=== PATIENT | female | born 1955 | race Caucasian/White ===

== ENCOUNTER 2016-06-30 12:47 | Emergency (ER) | payer OTHER, BC ==
[~2016-06-30] VITALS: Ht 165.1 cm; Wt 104.5 kg
[~2016-06-30 12:47] MED LIST: ATOR-22 PO; ESCI10TA17 PO; FEXO5TAB2 PO; GLC/500 PO; LEVO100T7 PO; LISI-787 PO; OMEP10CA2 PO
[2016-06-30 12:55] VITALS: TEMP 36.9; Ht 165.1 cm; Wt 104.5 kg
[2016-06-30] MEDS ORDERED: LISI40TA PO (13:09)
[2016-06-30] MEDS ORDERED: METO25TA56 PO (13:09)
[2016-06-30] MEDS ORDERED: PRLSR20 PO (13:09)
[2016-06-30] MEDS ORDERED: LEVO88TA3 PO (13:09)
[2016-06-30] MEDS ORDERED: WARF10TA4 PO (13:09)
[2016-06-30] MEDS ORDERED: SODIUM CHLORIDE 0.9% 1000ML 1,000 ML IV STA ×2 (13:29)
[2016-06-30] MEDS ORDERED: OXYCODONE HCL IR 5 MG TAB (IMMEDIATE RELEASE) PO STA (13:29)
[2016-06-30 13:35] VITALS: O2SAT 93
[2016-06-30] MEDS: DIPHTHERIA/TETANUS/PERTUSSIS 0.5 ML SYR/VIAL IM. ONE ×2 (13:44→13:46)
[2016-06-30 13:54] LABS: BASO % 0.4 %; BASO ABS # 0.04 K/uL (0-0.2); COMPLETE YES; EOS % 1.6 %; HEMATOCRIT 40.5 % (37-47); IG% 0.8 %; LYMPH % 28.6 %; LYMPH ABS # 3.09 K/uL (1.2-3.4); MEAN CELL VOLUME 81.3 fL (80-100); MEAN CORPUSCULAR HEMOGLOBIN 26.9 pg (25-34); MEAN CORPUSCULAR HGB CONC 33.1 g/dl (32-36); MEAN PLATELET VOLUME 10.5 fL (7.4-10.4); MONO % 6.8 %; NEUT % 61.8 %; PLATELET COUNT 244 K/uL (130-400); RED BLOOD COUNT 4.98 M/uL (4.2-5.4); WHITE BLOOD COUNT 10.82 K/uL (4.8-10.8)
[2016-06-30 14:04] LABS: INR 1.9 (0.9-1.1)
[2016-06-30 14:10] LABS: ALKALINE PHOSPHATASE 83 U/L (45-117); ALT/SGPT 38 U/L (12-78); AST/SGOT 22 U/L (15-37); BLOOD UREA NITROGEN 16 mg/dl (7-18); BUN/CREATININE RATIO 16.1 (10-20); CALCIUM 8.7 mg/dl (8.5-10.1); CARBON DIOXIDE 25 mmol/L (21-32); CHLORIDE 108 mmol/L (98-107); CREATININE 0.97 mg/dl (0.60-1.20); GLUCOSE 122 mg/dl (70-99); POTASSIUM 4.1 mmol/L (3.5-5.1); SODIUM 144 mmol/L (136-145)
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
[2016-06-30] MEDS ORDERED: MoRPHine SULFATE 10 MG/ML CARP/VIAL IV STA (14:30)
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
[2016-06-30] MEDS ORDERED: OXYC1TAB3 PO (16:27)
[2016-06-30 16:53] VITALS: BP 159/76; PULSE 70; O2SAT 94
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
== END 2016-06-30 16:57 | disposition home or self-care (01) ==
LOC: EDBD 12:47 → C.EDC 12:56
DX: S22.080A Wedge compression fracture of T11-T12 vertebra, initial encounter for closed fracture (principal); S32.010A Wedge compression fracture of first lumbar vertebra, initial encounter for closed fracture; I48.91 Unspecified atrial fibrillation; Z79.01 Long term (current) use of anticoagulants; E11.9 Type 2 diabetes mellitus without complications; Z79.84 Long term (current) use of oral hypoglycemic drugs; M41.9 Scoliosis, unspecified; V48.0XXA Car driver injured in noncollision transport accident in nontraffic accident, initial encounter; Y93.89 Activity, other specified; Y92.89 Other specified places as the place of occurrence of the external cause; Y99.8 Other external cause status

== ENCOUNTER → 2016-08-13 | Outpatient (CLI) | payer BC ==
[~2016-08-13] MED LIST changes: -ESCI10TA17 PO; -LEVO100T7 PO; +LEVO88TA3 PO; -LISI-787 PO; +LISI40TA PO; +METO25TA56 PO; -OMEP10CA2 PO; +OXYC1TAB3 PO; +PRLSR20 PO; +WARF10TA4 PO
--- NOTE | 2016-08-13 15:55 | MAMMOGRAPHY REPORT ---
BILATERAL DIGITAL SCREENING MAMMOGRAM WITH CAD: 08/13/2016 CLINICAL HISTORY: Routine screening. Patient has no complaints. TECHNIQUE: Current study was also evaluated with a Computer Aided Detection (CAD) system. Bilatera l CC and MLO views were obtained. COMPARISON: Comparison is made to exams dated: 08/09/2015 mammogram, 01/10/2013 mammogram, 08/08/2014 mammogram, 01/09/2012 mammogram, 12/19/2010 mammogram, and 12/18/2009 mammogram - [facility]. BREAST COMPOSITION: There are scattered areas of fibroglandular density in both breasts. FINDINGS: No suspicious masses, calcifications, or areas of architectural distortion are noted in e ither breast. There has been no significant interval change compared to prior exams. IMPRESSION: ACR BI-RADS CATEGORY 1: NEGATIVE There is no mammographic evidence of malignancy. A 1 year screening mammogram is recommended. The p atient will receive written notification of the results. Approximately 10% of breast cancers are not detected with mammography. A negative mammographic repor t should not delay biopsy if a clinically suggestive mass is present. Jocelni Haro M.D. ah/:08/13/2016 15:16:01 Home Health Administrator: Sherie ROSARIO(Naida)(M), [facility] letter sent: Normal 1/2 BI-RADS Code: ACR BI-RADS Category 1: Negative
== END | disposition home or self-care (01) ==
LOC: C.MAMM 14:49
PROVIDERS: ATTEND Family Medicine
DX: Z12.31 Encounter for screening mammogram for malignant neoplasm of breast (principal)

== ENCOUNTER → 2017-09-10 | Outpatient (CLI) | payer OTHER ==
[~2017-09-10] MED LIST changes: -OXYC1TAB3 PO
--- NOTE | 2017-09-11 07:44 | MAMMOGRAPHY REPORT ---
BILATERAL DIGITAL SCREENING MAMMOGRAM TOMOSYNTHESIS WITH CAD: 09/10/2017 CLINICAL HISTORY: Routine screening. Patient has no complaints. TECHNIQUE: Breast tomosynthesis in addition to standard 2D mammography was performed. Current study was also evaluated with a Computer Aided Detection (CAD) system. COMPARISON: Comparison is made to exams dated: 08/13/2016 mammogram, 08/09/2015 mammogram, 08/08/2014 m ammogram, 01/10/2013 mammogram, 01/09/2012 mammogram, and 12/19/2010 mammogram - [facility]. BREAST COMPOSITION: There are scattered areas of fibroglandular density in both breasts. FINDINGS: No suspicious masses, calcifications, or areas of architectural distortion are noted in ei ther breast. There has been no significant interval change compared to prior exams. IMPRESSION: ACR BI-RADS CATEGORY 1: NEGATIVE There is no mammographic evidence of malignancy. A 1 year screening mammogram is recommended. The pa tient will receive written notification of the results. Approximately 10% of breast cancers are not detected with mammography. A negative mammographic report should not delay biopsy if a clinically suggestive mass is present. Jocelin Haro M.D. ah/:09/10/2017 14:21:39 General Duty Nurse: Sofia ROSARIO(Naida)(M), [facility] letter sent: Normal 1/2 BI-RADS Code: ACR BI-RADS Category 1: Negative
== END | disposition home or self-care (01) ==
LOC: C.MAMM 13:32
PROVIDERS: ATTEND Family Medicine
DX: Z12.31 Encounter for screening mammogram for malignant neoplasm of breast (principal)

== ENCOUNTER 2021-06-23 22:26 | Observation (INO) ==
[2021-06-23] MEDS ORDERED: SODIUM CHLORIDE 0.9% 1000ML 1,000 ML IV ONE (22:46)
[2021-06-24 00:05] LABS: BUN Creatinine Ratio 19.4 (10-20); Bilirubin,Total 0.3 mg/dl (0.2-1.0); Calcium 8.9 mg/dl (8.5-10.1); Creatinine Clr Calc Pharmacy 65.7 ml/min; Est GFR (African American) 61.5 ml/min; Est GFR (Non-African American) 53.1 ml/min; Total Protein 6.4 gm/dl (6.0-8.3)
--- NOTE | 2021-06-24 00:16 | Emergency Department Note ---
History of Present Illness General Chief complaint: Hyperglycemia Stated complaint: BLOOD SUGAR UP TO 451,DIZZINESS,FAST HR Time Seen by Provider: 06/23/21 22:41 History of Present Illness Provider complaint: Hyperglycemia Onset (ago): day(s) 3 Associated symptoms: no chest pain, no cough, no fever/chills, no headaches, no nausea/vomiting, no rash, no shortness of breath, no syncope or no weakness 66-year-old type II diabetic female presents emergency department for hyperglycemia. Patient reports her blood sugars have been high for the last 3 days. She states her high blood blood sugar was greater than 450. Patient states her symptoms started after she was placed on prednisone by her PCP for gout. She states she has a gout flareup in her right big toe. She states since starting the prednisone she has noticed her blood sugars are higher and she feels restless. Patient is on metformin 500 mg no insulin no other oral hypoglycemic medications. Patient denies any chest pain difficulty breathing hematuria dysuria nausea vomiting or diarrhea. No fevers. Home Medications Medication Instructions Recorded Confirmed Type atorvastatin 20 mg tablet 20 mg PO DAILY 09/15/18 06/23/21 History escitalopram oxalate 10 mg tablet 10 mg PO DAILY 09/15/18 06/23/21 History (Lexapro) hydrochlorothiazide 12.5 mg tablet 12.5 mg PO DAILY 09/15/18 06/23/21 History levothyroxine 100 mcg tablet 100 mcg PO DAILYBB 09/15/18 06/23/21 History (Levoxyl) lisinopril 40 mg tablet 40 mg PO DAILY 09/15/18 06/23/21 History metformin 500 mg tablet 500 mg PO BIDM 09/15/18 06/23/21 History omeprazole 10 mg capsule,delayed 10 mg PO DAILY 09/15/18 06/23/21 History release apixaban 5 mg tablet (Eliquis) 5 mg PO BID 06/23/21 06/23/21 History metoprolol succinate 25 mg 25 mg PO HS 06/23/21 06/23/21 History tablet,extended release 24 hr etodolac 200 mg capsule 200 mg PO Q12H PRN #14 cap 06/24/21 Rx Allergies Allergy/AdvReac Type Severity Reaction Status Date / Time Sulfa (Sulfonamide Allergy Intermediate RASH, Verified 06/23/21 23:14 Antibiotics) SWELLING Past Med/Surg History Medical History Compression fracture of lumbosacral spine Diabetes Gout No pertinent family history Surgical History No pertinent past surgical history Family History Other No pertinent family history Social History Smoking Status: Never smoker Preferred Language: French Feels Safe at Home: Yes Review of Systems A total of 6 systems reviewed and were otherwise negative Physical Exam Vital Signs Vital Signs - 24 hr 06/23/21 22:29 06/23/21 23:30 06/23/21 23:31 Temperature 36.3 C L Temperature Source Temporal Artery Scan Pulse Rate 80 61 Pulse Rate [Apical] 62 Pulse Rhythm Regular Pulse Rhythm [Apical] Regular Pulse Strength [Apical] Normal Respiratory Rate 18 20 20 Respiratory Effort / Characteristics Non-Labored Spontaneous Respiratory Depth Normal Normal Respiratory Pattern Regular Blood Pressure 192/86 H Blood Pressure [Right Arm] 169/76 H Blood Pressure Mean 121 Blood Pressure Mean [Right Arm] 107 Blood Pressure Position [Right Arm] Semi-fowlers Pulse Oximetry 94 96 96 Oxygen Delivery Method Room Air Room Air Room Air Sepsis Recent Fever Within 48 Hours No Sepsis New/Unexplained Change in Mental Status N/A Sepsis Action Taken by Nursing No Action Required 06/24/21 01:00 Temperature Temperature Source Pulse Rate Pulse Rate [Apical] 63 Pulse Rhythm Pulse Rhythm [Apical] Regular Pulse Strength [Apical] Normal Respiratory Rate 18 Respiratory Effort / Characteristics Non-Labored Spontaneous Respiratory Depth Normal Respiratory Pattern Regular Blood Pressure Blood Pressure [Right Arm] 169/76 H Blood Pressure Mean Blood Pressure Mean [Right Arm] 107 Blood Pressure Position [Right Arm] Semi-fowlers Pulse Oximetry 97 Oxygen Delivery Method Room Air Sepsis Recent Fever Within 48 Hours Sepsis New/Unexplained Change in Mental Status Sepsis Action Taken by Nursing Physical Exam GENERAL: She is oriented to person, place, and time. She appears well-developed and well-nourished. She does not appear distressed. HENT: Exam performed. -Head: Normocephalic and atraumatic. -Right Ear: External ear normal. No mastoid tenderness. -Left Ear: External ear normal. No mastoid tenderness. -Mouth/Throat: The oropharynx is clear and moist. No trismus in the jaw. No dental abscesses or uvula swelling. No oropharyngeal exudate or tonsillar abscesses. EYES: Conjunctivae and EOM are normal. Pupils are equal, round, and reactive to light. Right eye exhibits no discharge. Left eye exhibits no discharge. No scleral icterus. NECK: Normal range of motion. Neck supple. No JVD present. No spinous process tenderness present. No carotid bruit present. No rigidity. No tracheal deviation and normal range of motion present. No Brudzinski's sign and no Kernig's sign noted. CV: Normal rate, regular rhythm, normal heart sounds and intact distal pulses. There is no peripheral edema. Palpable radial pulses bue. PULM/CHEST: Effort normal and breath sounds normal. No respiratory distress. No stridor. She has no wheezes. She has no rales. -Chest Wall: She exhibits no tenderness. ABD: The abdomen is soft and obese Bowel sounds are normal. She has no distension. No mass is present. There is no tenderness. There is no rebound, no guarding, no Ramirez's sign and no tenderness at McBurney's point. Rovsig negative MUSC/SKEL: Right great toe tophi. LYMPH: No cervical adenopathy. NEURO: She is alert and oriented to person, place, and time. She has normal strength. No cranial nerve deficit or sensory deficit. Coordination and gait normal. GCS eye subscore is 4. GCS verbal subscore is 5. GCS motor subscore is 6. Cerebellar tests wnl. SKIN: Skin is warm and dry. She is not diaphoretic. PSYCH: She has a normal mood and affect. Behavior is normal. Judgment and thought content normal. Course Course 224: The patient was evaluated in room C4. A complete history and physical exam was performed Cardiac monitoring: An order was placed for continuous cardiac monitoring. The monitor shows a rate of 60 with sinus rhythm 0055: Vital signs stable. Labs show hyperglycemia with elevated anion gap. No significant provement in blood sugar with 1 L IV fluid. Patient will be started on insulin drip as well as IV fluids with KCl. [facility] Dr. Almodovar who accepts the patient. Administered Medications Insulin Human Regular 250 (units/ Sodium Chloride) 250 mls @ 6 mls/hr IV .Q24H DEVEN; Protocol Stop: 07/24/21 00:44 Last Admin: 06/24/21 01:02 Dose: 6 units/hr, 6 mls/hr Documented by: [id number] Cosigned by: [id number] Potassium Chloride/Sodium Chloride (Normal Saline W/20 Meq Kcl) 20 meq in 1,000 mls @ 125 mls/hr IV .Q8H DEVEN; Protocol Stop: 07/24/21 00:44 Last Admin: 06/24/21 01:00 Dose: 125 mls/hr Documented by: [id number] Discontinued Medications Sodium Chloride (Nss 1000ml) 1,000 mls @ 999 mls/hr IV .Q1H1M ONE Stop: 06/23/21 23:46 Last Infusion: 06/24/21 01:09 Dose: 0 mls/hr Documented by: [id number] Admin: 06/23/21 23:26 Dose: 999 mls/hr Documented by: [id number] Critical Care Time Critical Care Time: Yes Total Critical Care Time: 37 I have personally spent greater than 37 minutes of critical care time in the direct management of this patient. This includes bedside care, interpretation of diagnostic studies, and testing, discussion with consultants, patient, and family members, and other required patient management activities. This 37 minutes is in excess of all separately billable procedures. Medical Decision Making Laboratory Data Result diagrams: 06/23/21 23:16 Lab Results 06/23/21 06/23/21 06/24/21 Range/Units 22:32 23:16 00:29 Sodium 133 L (136-145) mmol/L Potassium 4.0 (3.5-5.1) mmol/L Chloride 96 L (98-107) mmol/L Carbon Dioxide 23 (21-32) mmol/L Anion Gap 14 H (3-11) BUN 21 (6-23) mg/dl Creatinine 1.08 (0.6-1.2) mg/dl Est Cr Clr Drug Dosing 65.7 ml/min Est GFR ( Amer) 61.5 ml/min Est GFR (Non-Af Amer) 53.1 ml/min BUN/Creatinine Ratio 19.4 (10-20) Glucose 378 H* (70-99(Fasting)) mg/dl POC Glucose 364 H* 371 H* (70-99) mg/dl Calcium 8.9 (8.5-10.1) mg/dl Total Bilirubin 0.3 (0.2-1.0) mg/dl Direct Bilirubin 0.0 (0-0.2) mg/dl AST 17 (13-39) U/L ALT 30 (7-52) U/L Alkaline Phosphatase 85 (34-104) U/L Total Protein 6.4 (6.0-8.3) gm/dl Albumin 4.0 (3.4-5.0) gm/dl Lipase 46 (11-82) U/L SARS-CoV-2, RNA, NAAT (NEGATIVE) 06/24/21 Range/Units 00:42 Sodium (136-145) mmol/L Potassium (3.5-5.1) mmol/L Chloride (98-107) mmol/L Carbon Dioxide (21-32) mmol/L Anion Gap (3-11) BUN (6-23) mg/dl Creatinine (0.6-1.2) mg/dl Est Cr Clr Drug Dosing ml/min Est GFR ( Amer) ml/min Est GFR (Non-Af Amer) ml/min BUN/Creatinine Ratio (10-20) Glucose (70-99(Fasting)) mg/dl POC Glucose (70-99) mg/dl Calcium (8.5-10.1) mg/dl Total Bilirubin (0.2-1.0) mg/dl Direct Bilirubin (0-0.2) mg/dl AST (13-39) U/L ALT (7-52) U/L Alkaline Phosphatase (34-104) U/L Total Protein (6.0-8.3) gm/dl Albumin (3.4-5.0) gm/dl Lipase (11-82) U/L SARS-CoV-2, RNA, NAAT NEGATIVE (NEGATIVE) [facility] Narrative 2241: The patient was evaluated in room C4. A complete history and physical exam was performed Cardiac monitoring: An order was placed for continuous cardiac monitoring. The monitor shows a rate of 60 with sinus rhythm 0055: Vital signs stable. Labs show hyperglycemia with elevated anion gap. No significant provement in blood sugar with 1 L IV fluid. Patient will be started on insulin drip as well as IV fluids with KCl. [facility] Dr. Almodovar who accepts the patient. Impression & Plan DKA (diabetic ketoacidosis) Discharge Plan Visit Data Chief Complaint: Hyperglycemia Stated Complaint: BLOOD SUGAR UP TO 451,DIZZINESS,FAST HR ED Provider: Toño Patel Discharge Problem: DKA (diabetic ketoacidosis) Patient Disposition: Admitted As Inpatient Discharge Instructions Parisa/Other Patient Handouts: High Blood Sugar (Hyperglycemia), Treating Gout Attacks, Eating to Prevent Gout, ED Gout Diet Forms Stand Alone Forms: [facility], Virtual Emergency Department, Impo rtant Visit Information Prescriptions Prescriptions: New etodolac 200 mg capsule 200 mg PO Q12H PRN (Reason: pain) Qty: 14 RF: 0 Discontinued prednisone 20 mg tablet 20 mg PO DIRECTED RF: 0 No Action metformin 500 mg Tablet 500 mg PO BIDM RF: 0 atorvastatin 20 mg Tablet 20 mg PO DAILY RF: 0 levothyroxine [Levoxyl] 100 mcg Tablet 100 mcg PO DAILYBB RF: 0 omeprazole 10 mg Capsule,Delayed Release(Dr/Ec) 10 mg PO DAILY RF: 0 lisinopril 40 mg Tablet 40 mg PO DAILY RF: 0 escitalopram oxalate [Lexapro] 10 mg Tablet 10 mg PO DAILY RF: 0 hydrochlorothiazide 12.5 mg Tablet 12.5 mg PO DAILY RF: 0 metoprolol succinate 25 mg tablet extended release 24 hr 25 mg PO HS RF: 0 Eliquis 5 mg tablet 5 mg PO BID RF: 0 Referrals Referrals: Azalea Patel DO [Primary Care Provider] - (Follow-up in 1-7 days.) Discharge Problem: DKA (diabetic ketoacidosis) Qualifiers: Diabetes mellitus type: drug or chemical induced Diabetes mellitus complication detail: without coma Qualified Code(s): E09.10 - Drug or chemical induced di abetes mellitus with ketoacidosis without coma
[2021-06-24] MEDS ORDERED: CARBOHYDRATES FOR HYPOGLYCEMIA PO PRN (00:36)
[2021-06-24] MEDS ORDERED: GLUCAGON FOR INJ 1 MG VIAL SQ PRN (00:36)
[2021-06-24] MEDS ORDERED: GLUCOSE 40% GEL 15 GM TUBE PO PRN (00:36)
[2021-06-24] MEDS ORDERED: DEXTROSE 50% 50 ML SYRINGE IV PRN (00:36)
[2021-06-24] MEDS ORDERED: GLUCOSE 10 TABS/TUBE PO PRN (00:36)
[2021-06-24] MEDS ORDERED: STAT IV Infusion **Titration per Protocol STA (00:36)
[2021-06-24] MEDS ORDERED: INSULIN REGULAR 250 UNITS in SODIUM CHLORIDE 0.9% 247.5 ML IV SCH (00:45)
[2021-06-24] MEDS: NSS + 20MEQ KCL 20 MEQ/1,000 ML BAG IV SCH ×3 (01:00→18:21)
[2021-06-24] MEDS ORDERED: CONSULT PHARMACY STA (02:24)
[2021-06-24 04:00] LABS: BUN Creatinine Ratio 22.6 (10-20); Calcium 8.6 mg/dl (8.5-10.1); Creatinine Clr Calc Pharmacy 76.3 ml/min; Est GFR (African American) 73.7 ml/min; Est GFR (Non-African American) 63.6 ml/min
[2021-06-24] MEDS ORDERED: NITROGLYCERIN SL 0.4 MG/TAB TAB SL PRN (04:09)
[2021-06-24] MEDS ORDERED: ACETAMINOPHEN 325 MG TAB PO PRN (04:09)
[2021-06-24] MEDS ORDERED: ONDANSETRON INJ 2 MG/ML 2 ML VIAL IV PRN (04:09)
[2021-06-24] MEDS ORDERED: PHARMACY GLYCEMIC MGMT CONSULT PRN (05:17)
[2021-06-24] MEDS: LEVOTHYROXINE SODIUM 100 MCG TABLET PO SCH (06:59)
[2021-06-24 07:30] LABS: Estimated Average Glucose 209 mg/dl; Hemoglobin A1C 8.9 % (4.5-5.6)
[2021-06-24 07:32] LABS: BUN Creatinine Ratio 22.6 (10-20); Creatinine Clr Calc Pharmacy 76.3 ml/min; Est GFR (African American) 73.7 ml/min; Est GFR (Non-African American) 63.6 ml/min; Potassium 4.6 mmol/L (3.5-5.1)
[2021-06-24] MEDS ORDERED: INSULIN GLARGINE SOLOSTAR 100 UNITS/ML 3 ML PEN SC ONE ×2 (08:00→16:30)
--- NOTE | 2021-06-24 08:34 | History and Physical Report ---
DATE OF ADMISSION: 06/24/2021. CHIEF COMPLAINT: Hyperglycemia. HISTORY OF PRESENT ILLNESS: This is a 66-year-old female with past medical history significant for type 2 diabetes, metabolic syndrome, hyperlipidemia, hypothyroidism, diaphragmatic hernia, obstructive sleep apnea, atrial fibrillation, hypertension, irritable bowel syndrome, reflux esophagitis, morbid obesity, chronic kidney disease stage III, adjustment disorder with depression mood, presents with hyperglycemia. The patient says she is having flares of gout frequently recently. She had a flare in April and also in May and also recently all flares treated with prednisone. She was again restarted on prednisone. At this time, she was advised to take allopurinol once the flare is done, and she was given prednisone and she has couple more days of prednisone to go and then after that to start allopurinol. Her gout attack is in the right great toe. The pain is much improved, but today sugars were running high, more than 400, that is why she came to the ER. The patient's sugars were 378 in the ER, anion gap was 14, CO2 was 23. Potassium was 4. She was started on insulin drip. Currently, resting comfortably. Denies any headache, but has some dizziness, no blurred visions, no earache, no runny nose, no sore throat, no cough, no chest pain, no shortness of breath. Appetite is okay. No dysphagia, no nausea, no vomiting, no abdominal pain. Normal bowel and bladder movements. Ambulates okay. not sleeping well since she was started on prednisone. Currently resting comfortably and hemodynamically stable. ALLERGIES: SULFA ANTIBIOTICS. PAST MEDICAL HISTORY: As mentioned above. PAST SURGICAL HISTORY: Colonoscopy, EGD with biopsy, right knee arthroscopy, laparoscopic cholecystectomy, cataract surgery, tonsillectomy, adenoidectomy, total hysterectomy. MEDICATIONS: The patient is on Eliquis 5 mg p.o. b.i.d., atorvastatin 20 mg p.o. daily, Lexapro 10 mg p.o. daily, etodolac 200 mg p.r.n., hydrochlorothiazide 12.5 mg p.o. daily, levothyroxine 100 mcg p.o. daily, lisinopril 40 mg p.o. daily, metformin 500 mg p.o. b.i.d., metoprolol succinate 25 mg p.o. at bedtime, omeprazole 10 mg p.o. daily. FAMILY HISTORY: Significant for paternal grandmother had cancer, paternal grandfather has eye problems, brother has diabetes, father has heart disorder and stroke, mother has dementia. SOCIAL HISTORY: No smoking, no alcohol, no drug use. REVIEW OF SYSTEMS: As per HPI. Rest of the review of systems is negative. PHYSICAL EXAMINATION: GENERAL: The patient is morbidly obese, not in acute distress. VITAL SIGNS: Temperature 36.3, pulse 63, respiratory rate 18, blood pressure 169/76, oxygen 97% on room air. HEENT: Pupils equal, round, and reactive to light. Oral mucosa moist. NECK: No JVD, no neck masses. CARDIOVASCULAR: S1 and S2 heard. Regular rate and rhythm. No murmur, no gallop. RESPIRATORY SYSTEM: Normal AP diameter. No accessory muscle use. No wheezing, no crackles. ABDOMEN: Soft, bowel sounds present, nontender, no distention. CENTRAL NERVOUS SYSTEM: Cranial nerves II-XII grossly intact, nonfocal. EXTREMITIES: Right big toe, medial aspect slightly inflamed, currently nontender, no edema seen. LABORATORY DATA: WBC 11.06, potassium 4, chloride 96, bicarbonate 23, BUN 21, creatinine 1.08, serum glucose 378, calcium 8.9, total bilirubin 0.3, AST 17, ALT 30, alkaline phosphatase 85, lipase 46. SARS-CoV-2 RNA negative. ASSESSMENT AND PLAN: This is a 66-year-old female who presents with hyperglycemia. 1. Hyperglycemia since started on prednisone last Thursday: Will stop the prednisone. ER started on IV insulin drip protocol, which will be continued.Getting fluids with potassium supplements. Follow BMP q. 4 hours while she is on insulin drip, pharmacy consult. Hold home metformin. Follow HbA1c levels. Closely monitor in the med tele. 2. Acute gout: It is improving. As sugars were running high with prednisone, will give her Naprosyn 500 mg p.o. b.i.d. for a couple more days and start on allopurinol. Follow up with the PCP. 3. Hypothyroidism: Continue Synthroid. 4. Hypertension: Continue lisinopril. Holding hydrochlorothiazide. Will monitor the blood pressure. 5. Hyperlipidemia: Continue statin. 6. Depression. Continue Lexapro. 7. Gastroesophageal reflux disease: Continue omeprazole. 8. Atrial fibrillation: On metoprolol and on Eliquis. 9. Obstructive sleep apnea: CPAP at bedtime. 10. Obesity: Needs counseling. 11. Chronic kidney disease stage III: Will follow the labs, presents with creatinine of 1.08. 12. Deep venous thrombosis prophylaxis: On Eliquis. DISPOSITION: Admit to med tele. PT/OT prior to discharge. Social service to help with discharge planning. Job ID: [id number] JENNA
[2021-06-24] MEDS: APIXABAN 5 MG TABLET PO SCH ×2 (09:07→20:50)
[2021-06-24] MEDS: ATORVASTATIN 20 MG TAB PO SCH (09:07)
[2021-06-24] MEDS: ESCITALOPRAM OXALATE 10 MG TAB PO SCH (09:07)
[2021-06-24] MEDS: lisinopril 40 MG TAB PO SCH (09:08)
[2021-06-24] MEDS: PANTOprazole 40 MG TAB PO SCH (09:09)
[2021-06-24] MEDS: INSULIN ASPART PER UNIT SC SCH ×5 (10:48→20:51)
[2021-06-24 11:33] LABS: BUN Creatinine Ratio 21.5 (10-20); Creatinine Clr Calc Pharmacy 76.3 ml/min; Est GFR (African American) 73.7 ml/min; Est GFR (Non-African American) 63.6 ml/min; Potassium 3.9 mmol/L (3.5-5.1)
[2021-06-24] MEDS: NAPROXEN 250 MG TAB PO SCH ×2 (12:45→20:52)
--- NOTE | 2021-06-24 12:52 | Communication Note ---
Date of Service: June 24, 2021 Patient seen and examined Reports right foot/toe pain is completely resolved Patient refused naproxen earlier as she is worried about risks associated with her eliquis. I think this is reasonable Will hold off further NSAIDS. Monitor for now Patient reports she already has allopurinol to start at home once flare is over Stop insulin drip Diet ordered Continue glycemic control per inpatient protocol Agree with other plans as detailed by Dr Almodovar this morning
--- NOTE | 2021-06-24 14:56 | Pharmacy Report ---
Pharmacy Glycemic Short Note 2 - Date of Service June 24, 2021 - Glycemic Short BSG Results (Last 24 hours): 06/23/21 06/23/21 06/24/21 22:32 23:16 00:29 Glucose 378 H* POC Glucose 364 H* 371 H* 06/24/21 06/24/21 06/24/21 02:54 03:30 04:06 Glucose 266 H POC Glucose 283 H 247 H 06/24/21 06/24/21 06/24/21 05:03 06:02 06:46 Glucose 141 H POC Glucose 203 H 181 H 06/24/21 06/24/21 06/24/21 08:26 10:40 12:41 Glucose 138 H POC Glucose 104 H 125 H OUTPATIENT ANTIDIABETIC REGIMEN: * metformin 500 mg BIDM * HbA1C = 8.9% (recent courses of steroids in June and April) ASSESSMENT: * Ms Gutierrez is a 66 y/o F with a PMH of T2DM on one oral agent who presents with acute hyperglycemia. She was prescribed prednisone 20 mg PO daily x5 days (started 06/21/21). Per outpatient records, patient has had difficulty with blood sugars while on steroids. * Insulin infusion initially started overnight and was held per calculator at 0800 WITHOUT basal insulin given. * BSGs have been steady around 130 mg/dL since insulin infusion discontinued. * Will start with Lantus 20 units (0.2 units/kg) as diet is ordered and expect blood sugars to increase with PO intake. Further doses to be determine by blood sugars. * Novolog weight-based stress of 2. PLAN FOR INPATIENT GLYCEMIC CONTROL: * Hold outpatient oral diabetes medications * Basal insulin * Lantus 20 units SQ x 1 * Bolus insulin * NovoLog per scale ACHS or Q6hrs while NPO * Goal Range: Low 110 mg/dL - High 140 mg/dL * Correction Factor: 25 mg/dL/unit * Nutritional / Prandial insulin per carb ratio of 1 unit per 7 grams CHO consumed PLAN FOR DISCHARGE: * Patient's HbA1C is elevated above goal of < 8% for comorbidities. * Recommend monitoring blood sugars as an outpatient, especially when not on steroids and adjusting regimen. * Could consider increasing metformin to goal of 1 gm PO BID.
[2021-06-24] MEDS ORDERED: METOPROLOL SUCC 25MG EXT REL TAB PO SCH (21:00)
[2021-06-25] MEDS: NSS + 20MEQ KCL 20 MEQ/1,000 ML BAG IV SCH ×2 (02:40→10:48)
[2021-06-25] MEDS: LEVOTHYROXINE SODIUM 100 MCG TABLET PO SCH (05:52)
[2021-06-25] MEDS: lisinopril 40 MG TAB PO SCH (08:20)
[2021-06-25] MEDS: PANTOprazole 40 MG TAB PO SCH (08:20)
[2021-06-25] MEDS: APIXABAN 5 MG TABLET PO SCH (08:20)
[2021-06-25] MEDS: ATORVASTATIN 20 MG TAB PO SCH (08:20)
[2021-06-25] MEDS: NAPROXEN 250 MG TAB PO SCH ×2 (08:20→08:31)
[2021-06-25] MEDS: ESCITALOPRAM OXALATE 10 MG TAB PO SCH (08:20)
[2021-06-25] MEDS: INSULIN ASPART PER UNIT SC SCH ×2 (08:24→12:40)
--- NOTE | 2021-06-25 11:35 | Discharge Summary ---
Date of Service June 25, 2021 Admission HPI Per Admitting Provider This is a 66-year-old female with past medical history significant for type 2 diabetes, metabolic syndrome, hyperlipidemia, hypothyroidism, diaphragmatic hernia, obstructive sleep apnea, atrial fibrillation, hypertension, irritable bowel syndrome, reflux esophagitis, morbid obesity, chronic kidney disease stage III, adjustment disorder with depression mood, presents with hyperglycemia. The patient says she is having flares of gout frequently recently. She had a flare in April and also in May and also recently all flares treated with prednisone. She was again restarted on prednisone. At this time, she was advised to take allopurinol once the flare is done, and she was given prednisone and she has couple more days of prednisone to go and then after that to start allopurinol. Her gout attack is in the right great toe. The pain is much improved, but today sugars were running high, more than 400, that is why she came to the ER. The patient's sugars were 378 in the ER, anion gap was 14, CO2 was 23. Potassium was 4. She was started on insulin drip. Currently, resting comfortably. Denies any headache, but has some dizziness, no blurred visions, no earache, no runny nose, no sore throat, no cough, no chest pain, no shortness of breath. Appetite is okay. No dysphagia, no nausea, no vomiting, no abdominal pain. Normal bowel and bladder movements. Ambulates okay. not sleeping well since she was started on prednisone. Currently resting comfortably and hemodynamically stable. Admission Exam Per Admitting Provider GENERAL: The patient is morbidly obese, not in acute distress. VITAL SIGNS: Temperature 36.3, pulse 63, respiratory rate 18, blood pressure 169/76, oxygen 97% on room air. HEENT: Pupils equal, round, and reactive to light. Oral mucosa moist. NECK: No JVD, no neck masses. CARDIOVASCULAR: S1 and S2 heard. Regular rate and rhythm. No murmur, no gallop. RESPIRATORY SYSTEM: Normal AP diameter. No accessory muscle use. No wheezing, no crackles. ABDOMEN: Soft, bowel sounds present, nontender, no distention. CENTRAL NERVOUS SYSTEM: Cranial nerves II-XII grossly intact, nonfocal. EXTREMITIES: Right big toe, medial aspect slightly inflamed, currently nontender, no edema seen. Principal Diagnosis Hyperglycemia due to steroid therapy for Acute gout flare in a diabetic Discharge Exam Constitutional + well hydrated and + obese; no acute distress Eyes PERRL, conjunctivae normal, anicteric sclerae ENMT external ear and nose normal, oropharynx normal Respiratory normal respiratory effort, lungs clear to auscultation Cardiovascular Rate/Rhythm: regular rate and regular rhythm S1 S2 Gastrointestinal (Abdomen) normal bowel sounds, soft, nontender, no hepatosplenomegaly Musculoskeletal no cyanosis or clubbing, extremities motor strength 5/5 No tenderness or swelling in examination of right foot Neurologic PERRL, EOMI, accommodation nl, no face palsy, no dysarthria Psychiatric A+Ox3, euthymic affect Discharge Data Allergies Allergy/AdvReac Type Severity Reaction Status Date / Time Sulfa (Sulfonamide Allergy Intermediate RASH, Verified 06/23/21 23:14 Antibiotics) SWELLING Consultations 06/24/21 00:41 ED Decision to Admit Stat Hospital Course (1) Hyperglycemia: (2) Diabetes: (3) Gout: Patient presented with persistent hyperglycemia at home after starting prednisone prescribed for acute gout flare Hyperglycemia was managed with IVF and insulin drip This resolved quickly Patient's right 1st toe gout resolved. No pain or swelling Prednisone discontinued. Avoid NSAIDS due to being on eliquis Patient reports she already has allopurinol prescribed by PCP that she was supposed to start once flare resolved. Advised to start this and follow up with PCP Continue other home medications Total Time Total Time Spent Total Time Spent (In Minutes): 35 Total Time Includes: Examination of the Patient, Discharge Planning and Medication Reconciliation Discharge Plan Discharge Items Patient Disposition: Home - Self-Care Reason For Visit: HYPERGLYCEMIA Discharge Diagnosis: Hyperglycemia due to steroid therapy for Acute gout flare in a diabetic Activity: Resume your previous activity Non-emergency contact: Primary Care Provider Call non-emergency contact if: you have any medication questions and your symptoms worsen Follow-up/Referrals: Azalea Patel DO [Primary Care Provider] - (Date & Time 06/28/2021 2:20 PM Provider [facility] ) Diet: Carb Consistent or DM2 and Heart Healthy Addtl Attending Provider Instructions: Mrs Gutierrez. You came to the hospital due to very high blood sugars at home after starting steroid therapy for Acute gout flare. Your blood sugar was control. Gout flare resolved. You are being discharged home. Please ensure to start taking allopurinol already prescribed by your Primary Doctor to reduce frequency of gout flares. Please ensure follow up with your Primary Doctor. It was a pleasure taking care of you. Pending Studies at Discharge: No Stand-Alone Forms: My [facility], Smoking Cessation Medications and DC Order Prescriptions: Continued metformin 500 mg Tablet 500 mg PO BIDM RF: 0 atorvastatin 20 mg Tablet 20 mg PO DAILY RF: 0 levothyroxine [Levoxyl] 100 mcg Tablet 100 mcg PO DAILYBB RF: 0 omeprazole 10 mg Capsule,Delayed Release(Dr/Ec) 10 mg PO DAILY RF: 0 lisinopril 40 mg Tablet 40 mg PO DAILY RF: 0 escitalopram oxalate [Lexapro] 10 mg Tablet 10 mg PO DAILY RF: 0 hydrochlorothiazide 12.5 mg Tablet 12.5 mg PO DAILY RF: 0 metoprolol succinate 25 mg tablet extended release 24 hr 25 mg PO HS RF: 0 Eliquis 5 mg tablet 5 mg PO BID RF: 0 Discontinued prednisone 20 mg tablet 20 mg PO DIRECTED RF: 0 Discharge Orders: Discharge Order (Routine); Ordered 06/25/21 Ordered By: Christina Mccauley/Other Patient Handouts: High Blood Sugar (Hyperglycemia), Managing Type 2 Diabetes Admission Data Admit Date/Time: 06/24/21 02:24 Attending Provider: Christina Desir I. Admit Provider: Pranav Almodovar Primary Care Provider: Azalea Patel Other Providers: Pranav Almodovar Other Interventions: Discharge Summary Assessment (RN) Last Done: 06/25/21 12:22
[2021-06-25] MEDS ORDERED: INSULIN GLARGINE SOLOSTAR 100 UNITS/ML 3 ML PEN SC SCH (21:00)
== END 2021-06-25 13:58 | disposition home or self-care (01) ==
LOC: ED 22:26 → EDINP 06-24 02:24 → INTOOBSV 06-24 02:24 → EDINP 06-24 04:23 → 2N 06-24 14:43